=== PATIENT | male | born 1945 | race Caucasian/White ===

== ENCOUNTER 2024-03-05 18:02 | Observation (INO) | payer MEDICARE ==
--- NOTE | 2024-03-05 18:27 | ED ---
General Adult HPI - General Chief complaint: Altered Mental Status Stated complaint: AMS Time Seen by Provider: 03/05/24 18:05 Source: patient, family, EMS, RN notes reviewed Mode of arrival: EMS Limitations: no limitations - History of Present Illness Initial comments: Patient is a 78-year-old male presenting to the emergency department with concern for unresponsive episode. Episode happened a few hours ago. provides majority of history. Episode lasted approximately 2 minutes. Patient was unresponsive and did have a little bit of shaking. Patient has been somewhat confused since that time. Patient does have history of some confusion however this seems worse. Patient also has difficulty with walking and they were in the process of starting with hospice. - Related Data Home Medications Medication Instructions Recorded Confirmed Atorvastatin [Lipitor] 20 mg PO DAILY 03/05/24 03/05/24 Sertraline [Zoloft] 100 mg PO DAILY 03/05/24 03/05/24 Allergies Allergy/AdvReac Type Severity Reaction Status Date / Time No Known Allergies Allergy Verified 03/05/24 18:38 Review of Systems ROS Statement: Those systems with pertinent positive or pertinent negative responses have been documented in the HPI. ROS Other: All systems not noted in ROS Statement are negative. Constitutional: Denies: fever Eyes: Denies: eye pain Respiratory: Denies: dyspnea Cardiovascular: Denies: chest pain Neurological: Reports: as per HPI. Denies: headache, weakness Past Medical History Past Medical History: Memory Impairment History of Any Multi-Drug Resistant Organisms: None Reported Past Surgical History: No Surgical Hx Reported Past Psychological History: Depression Smoking Status: Never smoker Past Alcohol Use History: None Reported Past Drug Use History: None Reported General Exam Limitations: no limitations General appearance: alert, in no apparent distress Head exam: Present: atraumatic, normocephalic Eye exam: Present: normal appearance, PERRL, EOMI ENT exam: Present: normal oropharynx Neck exam: Present: normal inspection. Absent: tenderness, meningismus Respiratory exam: Present: normal lung sounds bilaterally Cardiovascular Exam: Present: regular rate, normal rhythm GI/Abdominal exam: Present: soft. Absent: tenderness Extremities exam: Present: normal inspection, full ROM. Absent: tenderness Neurological exam: Present: alert, CN II-XII intact. Absent: motor sensory deficit Expanded Neurological exam: Present: protecting the airway Patient oriented to: Present: person, place. Absent: time Speech: Present: fluid speech Cranial nerves: EOM's Intact: Normal Motor strength exam: RUE: 5, LUE: 5, RLE: 5, LLE: 5 Eye Response: (4) open spontaneously Motor Response: (6) obeys commands Verbal Response: (4) confused conversation Psychiatric exam: Present: normal affect, normal mood Skin exam: Present: normal color Course Vital Signs 03/05/24 03/05/24 18:05 19:22 Temperature 98.2 F Pulse Rate 93 Respiratory 18 Rate Blood Pressure 172/108 175/115 O2 Sat by Pulse 95 Oximetry EKG Findings - EKG Results: EKG: interpreted by ERMD, sinus rhythm, normal axis, normal QRS, normal ST/T Medical Decision Making - Medical Decision Making Was pt. sent in by a medical professional or institution (, PA, BRICK PAVING CHECKER, urgent care, hospital, or assisted...) When possible be specific @ -No Did you speak to anyone other than the patient for history (EMS, parent, family, police, friend...)? What history was obtained from this source @ -Family is present helps provide history as patient is a poor historian Did you review nursing and triage notes (agree or disagree)? Why? @ -I reviewed and agree with nursing and triage notes Were old charts reviewed (outside hosp., previous admission, EMS record, old EKG, old radiological studies, urgent care reports/EKG's, assisted records)? Report findings @ -No old charts were reviewed Differential Diagnosis (chest pain, altered mental status, abdominal pain women, abdominal pain men, vaginal bleeding, weakness, fever, dyspnea, syncope, headache, dizziness, GI bleed, back pain, seizure, CVA, palpatations, mental health, musculoskeletal)? @ -Differential Altered Mental Status: Hypoglycemia, DKA, hypercapnia, ETOH, overdose, CO poisoning, trauma, myxedema coma, HTN encephalopathy, infection, encephalitis, psychosis, intercranial hemorrhage, hepatic encephalopathy, meningitis, CVA, this is not meant to be an all-inclusive list EKG interpreted by me (3pts min.). @ -As above X-rays interpreted by me (1pt min.). @ -X-ray shows no acute process CT interpreted by me (1pt min.). @ -Brain without acute U/S interpreted by me (1pt. min.). @ -None done What testing was considered but not performed or refused? (CT, X-rays, U/S, labs)? Why? @ -None What meds were considered but not given or refused? Why? @ -None Did you discuss the management of the patient with other professionals (professionals i.e. , PA, BRICK PAVING CHECKER, lab, RT, psych nurse, protective services social worker, brand inspector, teacher, bank secrecy act officer, manager of case)? Give summary @ -Case discussed with practitioner Ioana Regalado who will admit covering hospital call Was smoking cessation discussed for >3mins.? @ -No Was critical care preformed (if so, how long)? @ -No Were there social determinants of health that impacted care today? How? (Homelessness, low income, unemployed, alcoholism, drug addiction, transportation, low edu. Level, literacy, decrease access to med. care, fpc, rehab)? @ -No Was there de-escalation of care discussed even if they declined (Discuss DNR or withdrawal of care, Hospice)? DNR status @ -No What co-morbidities impacted this encounter? (DM, HTN, Smoking, COPD, CAD, Cancer, CVA, ARF, Chemo, Hep., AIDS, mental health diagnosis, sleep apnea, morbid obesity)? @ -None Was patient admitted / discharged? Hospital course, mention meds given and route, prescriptions, significant lab abnormalities, going to OR and other pertinent info. @ -Patient reevaluated. Patient updated. Family also updated on plan. Patient will be admitted with further evaluation, admission orders written Undiagnosed new problem with uncertain prognosis? @ -No Drug Therapy requiring intensive monitoring for toxicity (Heparin, Nitro, Insulin, Cardizem)? @ -No Were any procedures done? @ -No Diagnosis/symptom? @ -Unresponsive episode Acute, or Chronic, or Acute on Chronic? @ -Acute Uncomplicated (without systemic symptoms) or Complicated (systemic symptoms)? @ -Default Side effects of treatment? @ -No Exacerbation, Progression, or Severe Exacerbation? @ -No Poses a threat to life or bodily function? How? (Chest pain, [place], [place], pneumonia, PE, COPD, DKA, ARF, appy, cholecystitis, CVA, Diverticulitis, Homicidal, Suicidal, threat to staff... and all critical care pts) @ -No - Lab Data Result diagrams: 03/05/24 18:37 03/05/24 18:37 Lab Results 03/05/24 03/05/24 03/05/24 Range/Units 18:37 18:37 18:37 WBC 11.4 H (3.8-10.6) k/uL RBC 4.82 (4.30-5.90) m/uL Hgb 13.6 (13.0-17.5) gm/dL Hct 43.5 (39.0-53.0) % MCV 90.3 (80.0-100.0) fL MCH 28.3 (25.0-35.0) pg MCHC 31.3 (31.0-37.0) g/dL RDW 13.3 (11.5-15.5) % Plt Count 272 (150-450) k/uL MPV 7.3 Neutrophils % 81 % Lymphocytes % 11 % Monocytes % 6 % Eosinophils % 1 % Basophils % 0 % Neutrophils # 9.2 H (1.3-7.7) k/uL Lymphocytes # 1.3 (1.0-4.8) k/uL Monocytes # 0.7 (0-1.0) k/uL Eosinophils # 0.2 (0-0.7) k/uL Basophils # 0.0 (0-0.2) k/uL Sodium 139 (137-145) mmol/L Potassium 4.4 (3.5-5.1) mmol/L Chloride 102 (98-107) mmol/L Carbon Dioxide 26 (22-30) mmol/L Anion Gap 11 mmol/L BUN 17 (9-20) mg/dL Creatinine 1.17 (0.66-1.25) mg/dL Est GFR (CKD-EPI)AfAm 68 (>60 ml/min/1.73 sqM) Est GFR (CKD-EPI)NonAf 59 (>60 ml/min/1.73 sqM) Glucose 144 H (74-99) mg/dL Calcium 9.9 (8.4-10.2) mg/dL Magnesium 1.6 (1.6-2.3) mg/dL Total Bilirubin 0.7 (0.2-1.3) mg/dL AST 27 (17-59) U/L ALT 18 (4-49) U/L Alkaline Phosphatase 116 (38-126) U/L Troponin I 0.014 (0.000-0.034) ng/mL Total Protein 6.6 (6.3-8.2) g/dL Albumin 4.0 (3.5-5.0) g/dL Disposition Clinical Impression: Unresponsive episode Disposition: ADMITTED IP TO THIS HOSP Is patient prescribed a controlled substance at d/c from ED?: No Referrals: Nonstaff,Physician [REFERRING] - 1-2 days Time of Disposition: 19:27
[2024-03-05 18:46] LABS: Basophils % (A) 0 %; Eosinophils # (A) 0.2 k/uL (0-0.7); Eosinophils % (A) 1 %; HCT 43.5 % (39.0-53.0); HGB 13.6 gm/dL (13.0-17.5); Lymphocytes # (A) 1.3 k/uL (1.0-4.8); Lymphocytes % (A) 11 %; MCH 28.3 pg (25.0-35.0); MCHC 31.3 g/dL (31.0-37.0); MCV 90.3 fL (80.0-100.0); Mean Platelet Volume 7.3; Monocytes # (A) 0.7 k/uL (0-1.0); Monocytes % (A) 6 %; Neutrophils # (A) 9.2 k/uL (1.3-7.7); Neutrophils % (A) 81 %; Platelet Count 272 k/uL (150-450); RBC 4.82 m/uL (4.30-5.90); RDW 13.3 % (11.5-15.5); WBC 11.4 k/uL (3.8-10.6)
[2024-03-05 19:04] LABS: ALT 18 U/L (4-49); AST 27 U/L (17-59); African American GFR (CKD) 68 (>60 ml/min/1.73 sqM); Alkaline Phosphatase 116 U/L (38-126); Anion Gap 11 mmol/L; Blood Urea Nitrogen 17 mg/dL (9-20); Calcium 9.9 mg/dL (8.4-10.2); Carbon Dioxide 26 mmol/L (22-30); Chloride 102 mmol/L (98-107); Glucose 144 mg/dL (74-99); Magnesium 1.6 mg/dL (1.6-2.3); Non-African American GFR(CKD) 59 (>60 ml/min/1.73 sqM); Potassium 4.4 mmol/L (3.5-5.1); Sodium 139 mmol/L (137-145); Total Bilirubin 0.7 mg/dL (0.2-1.3); Total Protein 6.6 g/dL (6.3-8.2)
--- NOTE | 2024-03-05 19:12 | XR ---
EXAMINATION TYPE: XR chest 2V DATE OF EXAM: 03/05/2024 COMPARISON: None INDICATION: Unresponsive TECHNIQUE: Frontal and lateral views of the chest are obtained. FINDINGS: The heart size is normal. The pulmonary vasculature is normal. The lungs are clear. IMPRESSION: 1. No acute pulmonary process.
--- NOTE | 2024-03-05 19:18 | CT ---
EXAMINATION TYPE: CT brain wo con DATE OF EXAM: 03/05/2024 COMPARISON: None INDICATION: SEIZURE/CONFUSION DLP: 1080 mGycm, Automated exposure control for dose reduction was used. CONTRAST: None CT of the brain is performed utilizing 3 mm thick sections through the posterior fossa and 3 mm thick sections through the remaining calvarium. Study is performed within 24 hours of arrival to the hosp ital. No abnormal hyperdensity is present to suggest an acute intracranial hemorrhage. No mass lesion is evident. No acute infarcts are evident. Periventricular white matter hypodensity is present, likely on the bas is of chronic white matter ischemic changes. Ventricles and sulci are prominent for the patient age. Paranasal sinuses and mastoid air cells within the [id number] are clear. IMPRESSION: 1. No acute intracranial process. Follow up MRI can be performed as clinically indicated. 2. Atrophy with chronic appearing periventricular white matter ischemic type changes.
[2024-03-05] MEDS ORDERED: NALOXONE 0.4 MG/ML 1 ML VIAL IV PRN (19:27)
[2024-03-05] MEDS: hydrALAZINE HCL 25 MG TAB PO STA (19:36)
[2024-03-05] MEDS: FAMOTIDINE 20 MG TAB PO SCH (20:27)
[2024-03-06] MEDS: hydrALAZINE HCL 25 MG TAB PO PRN (07:41)
[2024-03-06] MEDS: ATORVASTATIN 20 MG TAB PO SCH (08:17)
[2024-03-06] MEDS: SERTRALINE 100 MG TAB PO SCH (08:17)
--- NOTE | 2024-03-06 09:54 | P.CRDCN ---
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 He has a past medical history of depression and hyperlipidemia and dementia. Patient apparently had an unresponsive episode that lasted about 2 minutes with some shaking and he was more confused than his baseline following that. Family apparently was looking into signing him up for hospice prior to this. Patient is very confused as a matter fact, he looks over his shoulder to ask his a question who was not there. Patient apparently is unable to ambulate. Blood pressure initially 172/108 and now is 174/96. Patient received 1 dose of hydralazine 25 mg EKG: Sinus rhythm Chest x-ray: No acute process CAT scan of the brain showed no acute process Laboratory studies: WBC 11.4, hemoglobin 13.6. Sodium 139, potassium 4.4, creatinine 1.17, blood sugar 144. Troponins negative x 3. Home cardiac medications: Review Of Systems: At the time of my exam: Unable to obtain accurate ROS due to confusion CONSTITUTIONAL: Denies fever or chills. HEENT: Denies blurred vision, vision changes, or eye pain. Denies hemoptysis CARDIOVASCULAR: Denies chest pain. Denies orthopnea. Denies PND. Denies palpitations RESPIRATORY: Denies shortness of breath. GASTROINTESTINAL: Denies abdominal pain. Denies nausea or vomiting. HEMATOLOGIC: Denies bleeding disorders. GENITOURINARY: Denies any blood in urine. SKIN: Denies puritis. Denies rash. Physical examination: Gen: This is a 78-year-old male appears to be in no acute distress VS: reviewed HEENT: Head is atraumatic, normocephalic. Pupils equal, round. Sclerae is anicteric. NECK: Supple. No JVD. LUNGS: Clear to auscultation. No wheezes or rhonchi. No intercostal retractions. HEART: Regular rate and rhythm. ABDOMEN: Soft No tenderness. EXTREMITIES: No pedal edema. No calf tenderness. NEUROLOGICAL: Patient is awake, alert and confused. Assessment: Unresponsive episode, rule out cardiac etiology Uncontrolled hypertension Dementia Hyperlipidemia Depression Plan: Resume patient's home cardiac medications Start patient on losartan 25 mg daily Monitor blood pressure Continue telemetry Obtain 2-D echocardiogram and Doppler study to assess cardiac structure and function Further recommendations to follow based upon clinical course Thank you kindly for this consultation. Nurse practitioner note has been reviewed, I agree with documented findings and plan of care. Patient was seen and examined. Past Medical History Past Medical History: Memory Impairment History of Any Multi-Drug Resistant Organisms: None Reported Past Surgical History: No Surgical Hx Reported Past Psychological History: Depression Smoking Status: Never smoker Past Alcohol Use History: None Reported Past Drug Use History: None Reported Medications and Allergies Home Medications Medication Instructions Recorded Confirmed Type Atorvastatin [Lipitor] 20 mg PO DAILY 03/05/24 03/05/24 History Sertraline [Zoloft] 100 mg PO DAILY 03/05/24 03/05/24 History Allergies Allergy/AdvReac Type Severity Reaction Status Date / Time No Known Allergies Allergy Verified 03/05/24 18:38 Physical Exam Vitals: Vital Signs Temp Pulse Resp BP Pulse Ox 03/06/24 08:20 88 18 174/96 03/06/24 07:25 98.3 F 81 16 157/104 95 03/06/24 03:22 85 18 171/99 95 03/05/24 22:39 95 18 164/99 95 03/05/24 19:22 175/115 03/05/24 18:05 98.2 F 93 18 172/108 95 Intake and Output 03/05/24 03/06/24 03/06/24 22:59 06:59 14:59 Other: Weight 70.307 kg Results 03/05/24 18:37 03/05/24 18:37 Cardiac Enzymes 03/05/24 03/05/24 03/05/24 Range/Units 18:37 18:37 21:34 AST 27 (17-59) U/L Troponin I 0.014 0.012 (0.000-0.034) ng/mL 03/06/24 Range/Units 00:17 AST (17-59) U/L Troponin I 0.015 (0.000-0.034) ng/mL CBC 03/05/24 Range/Units 18:37 WBC 11.4 H (3.8-10.6) k/uL RBC 4.82 (4.30-5.90) m/uL Hgb 13.6 (13.0-17.5) gm/dL Hct 43.5 (39.0-53.0) % Plt Count 272 (150-450) k/uL Comprehensive Metabolic Panel 03/05/24 Range/Units 18:37 Sodium 139 (137-145) mmol/L Potassium 4.4 (3.5-5.1) mmol/L Chloride 102 (98-107) mmol/L Carbon Dioxide 26 (22-30) mmol/L BUN 17 (9-20) mg/dL Creatinine 1.17 (0.66-1.25) mg/dL Glucose 144 H (74-99) mg/dL Calcium 9.9 (8.4-10.2) mg/dL AST 27 (17-59) U/L ALT 18 (4-49) U/L Alkaline Phosphatase 116 (38-126) U/L Total Protein 6.6 (6.3-8.2) g/dL Albumin 4.0 (3.5-5.0) g/dL Current Medications Generic Name Dose Route Start Last Admin Trade Name Freq PRN Reason Stop Dose Admin Atorvastatin Calcium 20 mg 03/06/24 09:00 03/06/24 08:17 Atorvastatin 20 Mg Tab PO 20 mg DAILY LUIS Administration Famotidine 20 mg 03/05/24 21:00 03/06/24 08:17 Famotidine 20 Mg Tab PO 20 mg BID LUIS Administration Hydralazine HCl 25 mg 03/05/24 19:30 03/06/24 07:41 Hydralazine Hcl 25 Mg Tab PO 25 mg BID PRN Administration Blood Pressure - High Naloxone HCl 0.2 mg 03/05/24 19:27 Naloxone 0.4 Mg/Ml 1 Ml Vial IV Q2M PRN Opioid Reversal Sertraline HCl 100 mg 03/06/24 09:00 03/06/24 08:17 Sertraline 100 Mg Tab PO 100 mg DAILY LUIS Administration Intake and Output 03/05/24 03/06/24 03/06/24 22:59 06:59 14:59 Other: Weight 70.307 kg 03/05/24 18:37 03/05/24 18:37
[2024-03-06] MEDS: LOSARTAN 25 MG TAB PO SCH (11:12)
[2024-03-06 12:57] LABS: Basophils % (A) 0 %; Eosinophils # (A) 0.3 k/uL (0-0.7); Eosinophils % (A) 3 %; HCT 44.1 % (39.0-53.0); HGB 14.5 gm/dL (13.0-17.5); Lymphocytes # (A) 1.6 k/uL (1.0-4.8); Lymphocytes % (A) 15 %; MCH 29.4 pg (25.0-35.0); MCHC 32.9 g/dL (31.0-37.0); MCV 89.3 fL (80.0-100.0); Mean Platelet Volume 7.8; Monocytes # (A) 0.7 k/uL (0-1.0); Monocytes % (A) 7 %; Neutrophils # (A) 7.6 k/uL (1.3-7.7); Neutrophils % (A) 74 %; Platelet Count 258 k/uL (150-450); RBC 4.94 m/uL (4.30-5.90); RDW 13.7 % (11.5-15.5); WBC 10.3 k/uL (3.8-10.6)
[2024-03-06 13:14] LABS: ALT 16 U/L (4-49); AST 23 U/L (17-59); African American GFR (CKD) 71 (>60 ml/min/1.73 sqM); Albumin 3.9 g/dL (3.5-5.0); Alkaline Phosphatase 101 U/L (38-126); Anion Gap 6 mmol/L; Blood Urea Nitrogen 17 mg/dL (9-20); Calcium 9.8 mg/dL (8.4-10.2); Carbon Dioxide 30 mmol/L (22-30); Chloride 104 mmol/L (98-107); Glucose 125 mg/dL (74-99); Non-African American GFR(CKD) 62 (>60 ml/min/1.73 sqM); Sodium 140 mmol/L (137-145); Total Bilirubin 0.6 mg/dL (0.2-1.3); Total Protein 6.5 g/dL (6.3-8.2)
--- NOTE | 2024-03-06 15:44 | P.HPIM ---
History of Present Illness This is a pleasant 78 years old male with past medical history of multiple medical problems Patient brought to the hospital because he was found unresponsive at the floor. Patient can of poor historian and he cannot remember what happened. He is disoriented to place as he thinks this is his house, with difficulty he can tell the year but not the month or date. He needed to be reminded for the name of the president. Patient follows command but he has poor insight into his illness He denies any chest pain or dyspnea He denies any GI/ symptoms He has mild headache but no dizziness. He denies weakness or numbness He said he quit smoking alcohol about 30 years ago Blood pressure was elevated 170/96, heart rate 88. He is afebrile Labs were unremarkable except for mildly elevated WBC at 11.4, has unremarkable CBC, BMP, liver enzymes and INR Troponin x 2 are -0.[address] of the brain negative Chest x-ray is negative for acute process EKG sinus rhythm at 91 with sinus arrhythmia, no significant ST-T changes Review of Systems Review of systems CONSTITUTIONAL: No fever, no malaise, no fatigue. HEENT: No recent visual problems or hearing problems. Denied any sore throat. CARDIOVASCULAR: No orthopnea, PND, no palpitations, no syncope. PULMONARY: No shortness of breath, no cough, no hemoptysis. GASTROINTESTINAL: No diarrhea, no nausea, no vomiting, no abdominal pain. Nor moactive bowel sounds. NEUROLOGICAL: No headaches, no weakness, no numbness. HEMATOLOGICAL: Denies any bleeding or petechiae. GENITOURINARY: Denies any burning micturition, frequency, or urgency. MUSCULOSKELETAL/RHEUMATOLOGICAL: Denies any joint pain, swelling, or any muscle pain. ENDOCRINE: Denies any polyuria or polydipsia. Past Medical History Past Medical History: Memory Impairment History of Any Multi-Drug Resistant Organisms: None Reported Past Surgical History: No Surgical Hx Reported Past Psychological History: Depression Smoking Status: Never smoker Past Alcohol Use History: None Reported Past Drug Use History: None Reported Medications and Allergies Home Medications Medication Instructions Recorded Confirmed Type Atorvastatin [Lipitor] 20 mg PO DAILY 03/05/24 03/05/24 History Sertraline [Zoloft] 100 mg PO DAILY 03/05/24 03/05/24 History Allergies Allergy/AdvReac Type Severity Reaction Status Date / Time No Known Allergies Allergy Verified 03/05/24 18:38 Physical Exam Vitals: Vital Signs Temp Pulse Resp BP Pulse Ox 03/06/24 08:20 88 18 174/96 03/06/24 07:25 98.3 F 81 16 157/104 95 03/06/24 03:22 85 18 171/99 95 03/05/24 22:39 95 18 164/99 95 03/05/24 19:22 175/115 03/05/24 18:05 98.2 F 93 18 172/108 95 Intake and Output 03/05/24 03/06/24 03/06/24 22:59 06:59 14:59 Other: Weight 70.307 kg -GENERAL: The patient is alert and oriented x1-2 , not in any acute distress. Well developed, well nourished. HEENT: Pupils are round and equally reacting to light. EOMI. No scleral icterus. No conjunctival pallor. Normocephalic, atraumatic. No pharyngeal erythema. No thyromegaly. CARDIOVASCULAR: S1 and S2 present. No murmurs, rubs, or gallops. PULMONARY: Chest is clear to auscultation, no wheezing , no crackles. ABDOMEN: Soft, nontender, nondistended, normoactive bowel sounds. No palpable organomegaly. MUSCULOSKELETAL: No joint swelling or deformity. EXTREMITIES: No cyanosis, clubbing, or pedal edema. NEUROLOGICAL: Gross neurological examination did not reveal any focal deficits. SKIN: No rashes. no petechiae. Results CBC & Chem 7: 03/06/24 12:36 03/06/24 12:36 Labs: Abnormal Lab Results - Last 24 Hours (Table) 03/05/24 03/05/24 Range/Units 18:37 18:37 WBC 11.4 H (3.8-10.6) k/uL Neutrophils # 9.2 H (1.3-7.7) k/uL Glucose 144 H (74-99) mg/dL Assessment and Plan Assessment: Fall at home, rule out syncope Hypertension with urgency Metabolic/toxic encephalopathy History of depression Mild leukocytosis Plan: Patient evaluated by neurologist who recommended EEG which is pending Follow-up echocardiogram Cardiology consult and neurology consult Resume home medication Check urine analysis and bladder scan Labs and medication were reviewed.. Continue same treatment. Continue with symptomatic treatment. Resume home medication. Monitor labs and vitals. DVT and GI prophylaxis. Further recommendations as per clinical course of the patient DVT prophylaxis: Subcutaneous heparin GI Prophylaxis: Pepcid PT/OT: Pending Prognosis is guarded
--- NOTE | 2024-03-06 16:12 | P.CNNES ---
History of Present Illness Consult date: 03/06/24 Requesting physician: Fran Fernández Reason for Consult: Unresponsive episode History of Present Illness: This is a 78-year-old gentleman history of memory impairment who present emergency department because of episode of unresponsiveness. Patient is a poor historian and it seems that yesterday he had episode of unresponsiveness and the provided the history to the ED physician. It seems that the episode lasted for 2 minutes. He had a little bit of shaking and he has been somewhat confused since that time. He has been having difficulty walking and they are in the process of starting hospice. Some of the workup during this hospital visit consisted of: TSH is 1.060 Serum glucose is 144 on presentation, calcium, magnesium, AST ALT, sodium BUN/creatinine are within normal limits next CT of the head is reported as no acute intracranial process. Atrophy with chronic appearing periventricular white matter ischemic type changes. Personally reviewed the CT and I agree there is no acute or subacute ischemia. I feel the patient's ventricles the lateral ventricle third and fourth ventricle appears slightly more dilated than the patient generalized atrophy concerning for normal pressure hydrocephalus Review of Systems Limited. Past Medical History Past Medical History: Memory Impairment History of Any Multi-Drug Resistant Organisms: None Reported Past Surgical History: No Surgical Hx Reported Past Psychological History: Depression Smoking Status: Never smoker Past Alcohol Use History: None Reported Past Drug Use History: None Reported Medications and Allergies Home Medications Medication Instructions Recorded Confirmed Type Atorvastatin [Lipitor] 20 mg PO DAILY 03/05/24 03/05/24 History Sertraline [Zoloft] 100 mg PO DAILY 03/05/24 03/05/24 History Allergies Allergy/AdvReac Type Severity Reaction Status Date / Time No Known Allergies Allergy Verified 03/05/24 18:38 Physical Examination - Vital Signs Vital Signs: Vital Signs Temp Pulse Resp BP Pulse Ox 03/06/24 14:42 79 16 153/96 95 03/06/24 12:00 84 16 169/111 03/06/24 11:15 85 18 170/108 03/06/24 10:54 76 18 175/101 03/06/24 08:20 88 18 174/96 03/06/24 07:25 98.3 F 81 16 157/104 95 03/06/24 03:22 85 18 171/99 95 03/05/24 22:39 95 18 164/99 95 03/05/24 19:22 175/115 03/05/24 18:05 98.2 F 93 18 172/108 95 General: Lying in bed and is not in acute distress. HENT: Supple neck. Neuro: Somewhat limited because of patient's very severe hearing as well as cooperation The patient is awake alert oriented to self and he stated he is in the hospital. He stated the year is 1923. He is able to name few objects correctly such as watch. No aphasia from limited language Pupils are round equal reactive to light the pupils are round 2 to 3 mm bilaterally. Visual wilkins are full to confrontation. Extraocular movements intact no nystagmus. No facial weakness. No dysarthria. Patient has severe hearing loss bilaterally. Motor is unable to assess individual muscle strength because of his cooperation but he is able to lift up all extremities above gravity. Reflexes sensation is unable to assess because of his cooperation Even plantars is unable to assess because of his cooperation Results - Laboratory Findings CBC and BMP: 03/06/24 12:36 03/06/24 12:36 Abnormal Lab Findings: Abnormal Labs 03/05/24 03/05/24 03/06/24 18:37 18:37 12:36 WBC 11.4 H Neutrophils # 9.2 H Glucose 144 H 125 H Assessment and Plan Assessment: This is a 78-year-old gentleman who presented emergency department because of episode of unresponsiveness. notified the ED physician that he had episode of unresponsiveness with little bit of shaken and he has been some come somewhat confused since then. The episode of unresponsive was 2 minutes. stated that they are in the process of starting hospice. Episode of unresponsiveness with shaking and and was confused afterwards seems suspicious of possible seizure. CT of the head is negative for any acute or subacute process there is a concern for normal pressure hydrocephalus. Underlying history of memory impairment Plan: Ordered a routine EEG. I will Assess the EEG first and will see other work-up prior to starting patient on any antiseizure medication as well as will see whether he has any further episodes of unresponsiveness that is truly seizure. Recommend MRI of the brain but it does not appear the patient will cooperate for the MRI since he would not lie still for it. Ordered ammonia level, vitamin B12. On seizure precautions seizure pads I feel there is a suspicion for normal pressure hydrocephalus on CT but if the is can a pursue hospice there is no further intervention needed unless the wants to have the patient evaluated by neurosurgeon neurologist as an outpatient for further evaluation. 2D echo was ordered by cardiology team Will defer the rest of the medical management to primary and other specialist next Thank you for the consultation. Time with Patient: Greater than 30
[2024-03-06] MEDS: QUEtiapine 25 MG TAB PO PRN (17:06)
--- NOTE | 2024-03-06 17:20 | CA ---
Transthoracic Echo Report Name: Marshall Brown Age: 78 Gender: M : 1945 Exam Date: 03/06/2024 15:00 Exam Location: [place] [facility] Ht (in): 69 Wt (lb): 155 Ordering Physician: Vianey Pickard Attending/Referring Phys: [id number], Neeraj It Applications Manager Kathleen Mcpherson RDCS Procedure CPT: Indications: LVF Cardiac Hx: Technical Quality: Very technically difficult study Contrast 1: Definity Total Dose (mL): 2 Contrast 2: Total Dose (mL): MEASUREMENTS (Male / Female) Normal Values 2D ECHO LV Diastolic Diameter PLAX 4.3 cm 4.2 - 5.9 / 3.9 - 5.3 cm LV Systolic Diameter PLAX 2.6 cm IVS Diastolic Thickness 1.1 cm 0.6 - 1.0 / 0.6 - 0.9 cm LVPW Diastolic Thickness 1.1 cm 0.6 - 1.0 / 0.6 - 0.9 cm LV Relative Wall Thickness 0.5 RV Internal Dim ED PLAX 2.1 cm LV Diastolic Volume MOD 4C 116.2 cm??? LV Systolic Volume MOD 4C 62.5 cm??? LV Ejection Fraction MOD 4C 46.2 % LV Cardiac Index MOD 4C 2373.8 cm???/min???m??? LV Diastolic Length 4C 8.8 cm LV Systolic Length 4C 7.9 cm DOPPLER AV Peak Velocity 62.0 cm/s AV Peak Gradient 1.5 mmHg MV Area PHT 3.1 cm??? Mitral E Point Velocity 48.0 cm/s Mitral A Point Velocity 88.7 cm/s Mitral E to A Ratio 0.5 MV Deceleration Time 243.0 ms TR Peak Velocity 251.9 cm/s TR Peak Gradient 25.4 mmHg Right Ventricular Systolic Press 30.4 mmHg FINDINGS Left Ventricle Left ventricular ejection fraction is estimated at 55-60 %. Left ventricular cavity size normal. Mildly increased septal wall thickness. No obvious regional wall motion abnormalities. Right Ventricle Normal right ventricular size and function. Right ventricular systolic pressure within normal limits. Right Atrium Right atrium not well visualized. Left Atrium Left atrium not well visualized. Mitral Valve Mitral valve thickened. Mild mitral annular calcification. No mitral stenosis, regurgitation or prolapse. Aortic Valve Aortic valve not well visualized. No aortic valve stenosis or regurgitation. Tricuspid Valve Structurally normal tricuspid valve. Mild tricuspid regurgitation. Pulmonic Valve Pulmonic valve not well visualized. Pericardium No pericardial or pleural effusion. Aorta Aortic root and proximal ascending aorta not well visualized. CONCLUSIONS Normal LV function Previewed by: Dr. Bj Osman MD (Electronically Signed) Final Date: 06 March 2024 17:20
[2024-03-06 20:12] LABS: Appearance,Urine Clear (Clear); Bilirubin,Urine Negative (Negative); Blood,Urine Negative (Negative); Color,Urine Light Yellow; Glucose,Urine (UA) Negative (Negative); Ketones,Urine Negative (Negative); Leukocyte Esterase,Urine Negative (Negative); Nitrite,Urine Negative (Negative); Protein,Urine Trace (Negative); Specific Gravity,Urine 1.019 (1.001-1.035); Urobilinogen,Urine <2.0 mg/dL (<2.0)
--- NOTE | 2024-03-06 22:25 | EEG ---
ELECTROENCEPHALOGRAM REPORT CLINICAL HISTORY: This is a 78-year-old gentleman with episode of unresponsiveness. The video EEG is obtained to evaluate for seizure epileptiform activity. RELEVANT MEDICATION: The patient is not on any anti-seizure medication. EEG TYPE: This is a routine 21-channel EEG with video using the 10/20 electrode placement system. DESCRIPTION: Wakefulness and drowsiness are obtained. During awake state, the posterior-dominant rhythm consists of ilf-ne-bmyleabw voltage of 6-6 to 6.5 hertz activity that is well modulated, well sustained. There is no physiological stage 2 sleep architecture. There is no focal slowing. INTERICTAL AND ICTAL: None. ACTIVATION PROCEDURE: Photic stimulation did not evoke a posterior driving response. There is no abnormality during the photic stimulation. Hyperventilation is not performed. CLINICAL INTERPRETATION: This is an abnormal routine EEG. The background slowing is suggestive of mild encephalopathy. There is no focal slowing, epileptiform discharge, or seizure on the EEG. Clinical correlation is recommended. MMARIADNA / ISABELLAN: [id number] /
[2024-03-07 08:39] LABS: Basophils % (A) 0 %; Eosinophils # (A) 0.1 k/uL (0-0.7); Eosinophils % (A) 1 %; HCT 44.6 % (39.0-53.0); HGB 14.4 gm/dL (13.0-17.5); Lymphocytes # (A) 1.1 k/uL (1.0-4.8); Lymphocytes % (A) 9 %; MCH 28.8 pg (25.0-35.0); MCHC 32.2 g/dL (31.0-37.0); MCV 89.4 fL (80.0-100.0); Mean Platelet Volume 7.2; Monocytes # (A) 0.9 k/uL (0-1.0); Monocytes % (A) 7 %; Neutrophils # (A) 10.4 k/uL (1.3-7.7); Neutrophils % (A) 82 %; Platelet Count 280 k/uL (150-450); RBC 4.99 m/uL (4.30-5.90); RDW 13.3 % (11.5-15.5); WBC 12.7 k/uL (3.8-10.6)
[2024-03-07 09:10] LABS: African American GFR (CKD) 77 (>60 ml/min/1.73 sqM); Anion Gap 8 mmol/L; Blood Urea Nitrogen 15 mg/dL (9-20); Carbon Dioxide 24 mmol/L (22-30); Chloride 105 mmol/L (98-107); Glucose 126 mg/dL (74-99); Non-African American GFR(CKD) 66 (>60 ml/min/1.73 sqM); Potassium 4.3 mmol/L (3.5-5.1); Sodium 137 mmol/L (137-145)
[2024-03-07 12:13] VITALS: BMI 21.4
--- NOTE | 2024-03-07 12:31 | P.PN ---
Subjective This is a pleasant 78 years old male with past medical history of multiple medical problems Patient brought to the hospital because he was found unresponsive at the floor. Patient can of poor historian and he cannot remember what happened. He is d isoriented to place as he thinks this is his house, with difficulty he can tell the year but not the month or date. He needed to be reminded for the name of the president. Patient follows command but he has poor insight into his illness He denies any chest pain or dyspnea He denies any GI/ symptoms He has mild headache but no dizziness. He denies weakness or numbness He said he quit smoking alcohol about 30 years ago Blood pressure was elevated 170/96, heart rate 88. He is afebrile Labs were unremarkable except for mildly elevated WBC at 11.4, has unremarkable CBC, BMP, liver enzymes and INR Troponin x 2 are -0.[address] of the brain negative Chest x-ray is negative for acute process EKG sinus rhythm at 91 with sinus arrhythmia, no significant ST-T changes 03/07 Patient looks confused today, I talked to the she said that he was not that confused more than 2 weeks ago and he was gradually getting worse. There was suspicion of a seizure. Neurologist evaluated the patient, EEG showed no epileptiform discharge Urine analysis is negative, bladder scan showing urine residual 200-300 As per staff was planning on sending him to hospice care. I called the Ms. Baker and discussed the case with her, she told me they want him to go to hospice because she cannot take care of him. She denies history of cance Hemodynamically stable Losartan added for better blood pressure control Echocardiogram done: Ejection fraction 55 to 60% wants to keep him 1 more day in the hospital to get him arrangements if he is going to be discharged tomorrow Active Medications Generic Name Dose Route Start Last Admin Trade Name Freq PRN Reason Stop Dose Admin Atorvastatin Calcium 20 mg 03/06/24 09:00 03/06/24 08:17 Atorvastatin 20 Mg Tab PO 20 mg DAILY LUIS Administration Famotidine 20 mg 03/05/24 21:00 03/06/24 22:29 Famotidine 20 Mg Tab PO 20 mg BID LUIS Administration Hydralazine HCl 25 mg 03/05/24 19:30 03/06/24 22:29 Hydralazine Hcl 25 Mg Tab PO 25 mg BID PRN Administration Blood Pressure - High Losartan Potassium 25 mg 03/06/24 10:00 03/06/24 11:12 Losartan 25 Mg Tab PO 25 mg DAILY LUIS Administration Naloxone HCl 0.2 mg 03/05/24 19:27 Naloxone 0.4 Mg/Ml 1 Ml Vial IV Q2M PRN Opioid Reversal Quetiapine Fumarate 25 mg 03/06/24 16:52 03/06/24 17:06 Quetiapine 25 Mg Tab PO 25 mg DAILY PRN Administration Agitation Sertraline HCl 100 mg 03/06/24 09:00 03/06/24 08:17 Sertraline 100 Mg Tab PO 100 mg DAILY LUIS Administration Objective - Vital Signs Vital signs: Vital Signs Temp 98.3 F 03/07/24 08:30 Pulse 80 03/07/24 08:30 Resp 17 03/07/24 08:30 BP 141/88 03/07/24 08:30 Pulse Ox 96 03/07/24 08:30 FiO2 Intake & Output 03/06/24 03/07/24 03/07/24 18:59 06:59 18:59 Intake Total 540 Balance 540 Weight 66 kg 66 kg Intake: Oral 540 Other: Voiding Method External Catheter External Catheter # Voids 1 - Exam - GENERAL: The patient is awake but confused not in any acute distress. Well developed, well nourished. HEENT: Pupils are round and equally reacting to light. EOMI. No scleral icterus. No conjunctival pallor. Normocephalic, atraumatic. No pharyngeal erythema. No thyromegaly. CARDIOVASCULAR: S1 and S2 present. No murmurs, rubs, or gallops. PULMONARY: Chest is clear to auscultation, no wheezing , no crackles. ABDOMEN: Soft, nontender, nondistended, normoactive bowel sounds. No palpable organomegaly. MUSCULOSKELETAL: No joint swelling or deformity. EXTREMITIES: No cyanosis, clubbing, or pedal edema. NEUROLOGICAL: Gross neurological examination did not reveal any focal deficits. SKIN: No rashes. no petechiae. - Labs CBC & Chem 7: 03/07/24 08:01 03/07/24 08:01 Labs: Abnormal Lab Results - Last 24 Hours (Table) 03/06/24 03/06/24 03/07/24 Range/Units 12:36 18:05 08:01 WBC 12.7 H (3.8-10.6) k/uL Neutrophils # 10.4 H (1.3-7.7) k/uL Glucose 125 H (74-99) mg/dL Urine Protein Trace H (Negative) 03/07/24 Range/Units 08:01 WBC (3.8-10.6) k/uL Neutrophils # (1.3-7.7) k/uL Glucose 126 H (74-99) mg/dL Urine Protein (Negative) Assessment and Plan Assessment: Fall at home, rule out syncope Hypertension with urgency Metabolic/toxic encephalopathy History of depression Mild leukocytosis Plan: Patient evaluated by neurologist who recommended EEG which is unremarkable Echocardiogram add losartan 25 mg with close monitoring blood pressure Cardiology consult and neurology consult Resume home medication Labs and medication were reviewed.. Continue same treatment. Continue with symptomatic treatment. Resume home medication. Monitor labs and vitals. DVT and GI prophylaxis. Further recommendations as per clinical course of the patient DVT prophylaxis: Subcutaneous heparin GI Prophylaxis: Pepcid PT/OT: Pending Prognosis is guarded
--- NOTE | 2024-03-07 15:05 | P.PN ---
Subjective Progress Note Date: 03/07/24 I am following up with the patient and according to the nurse he is more cooperative today but continues to be confused. I spoke with the patient's via phone and she was in tears and stated that she is unable to take care of him especially that she is the same age as him and she feels his condition is deteriorating. She is thinking about hospice but wants to talk to her daughter/rest of the family first. Objective - Vital Signs Vital signs: Vital Signs Temp 98.3 F 03/07/24 08:30 Pulse 80 03/07/24 08:30 Resp 17 03/07/24 08:30 BP 141/88 03/07/24 08:30 Pulse Ox 96 03/07/24 08:30 FiO2 Intake & Output 03/06/24 03/07/24 03/07/24 18:59 06:59 18:59 Intake Total 540 200 Balance 540 200 Weight 66 kg 66 kg Intake: Oral 540 200 Other: Voiding Method External Catheter External Catheter # Voids 1 - Exam General: Lying in bed and does not appear in acute distress. Neuro: Patient is awake alert oriented to self and he correctly stated that he is in the hospital. He is able to identify some objects correctly such as pen but sometimes he needed some cueing. He says he still appears to be confused and at times. Unable to assess visual wilkins or extraocular movement because of his cooperation. No facial weakness. No dysarthria Motor: Strength is unable to assess individual muscle strength but he is able to lift up upper extremity above gravity I do not appreciate any focality in the uppers. In the lowers he is wiggling his toes. Some of the workup during this hospital visit consisted of: TSH is 1.060 Vitamin B12 is 447 Ammonia is less than 9 Serum glucose is 144 on presentation, calcium, magnesium, AST ALT, sodium BUN/creatinine are within normal limits next CT of the head is reported as no acute intracranial process. Atrophy with chronic appearing periventricular white matter ischemic type changes. Margarita lawson reviewed the CT and I agree there is no acute or subacute ischemia. I feel the patient's ventricles the lateral ventricle third and fourth ventricle appears slightly more dilated than the patient generalized atrophy concerning for normal pressure hydrocephalus Routine EEG is abnormal. The background slowing is suggestive of mild encephalopathy. There is no focal slowing, [employer]iForm discharge or seizure on the EEG 2D echo is reported as normal left ventricular function. - Labs CBC & Chem 7: 03/07/24 08:01 03/07/24 08:01 Labs: Abnormal Lab Results - Last 24 Hours (Table) 03/06/24 03/07/24 03/07/24 Range/Units 18:05 08:01 08:01 WBC 12.7 H (3.8-10.6) k/uL Neutrophils # 10.4 H (1.3-7.7) k/uL Glucose 126 H (74-99) mg/dL Urine Protein Trace H (Negative) Assessment and Plan Assessment: This is a 78-year-old gentleman who presented emergency department because of episode of unresponsiveness. notified the ED physician that he had episode of unresponsiveness with little bit of shaken and he has been some come somewhat confused since then. The episode of unresponsive was 2 minutes. stated that they are in the process of starting hospice. Episode of unresponsiveness with shaking and and was confused afterwards seems suspicious of possible seizure. CT of the head is negative for any acute or subacute process there is a concern for normal pressure hydrocephalus. Underlying history of memory impairment. Feel the patient likely has underlying at least moderate dementia. Plan: Routine EEG was negative for any seizure or discharges. Because of my concern for seizure I started the patient on Depakote 250 mg twice daily. I will avoid Keppra since it can cause behavioral/mood issues. I feel there is a suspicion for normal pressure hydrocephalus on CT but if the is can a pursue hospice there is no further intervention needed unless the wants to have the patient evaluated by neurosurgeon neurologist as an outpatient for further evaluation. I spoke with the patient's via phone and she is concerning of hospice but wants to speak with her daughter and the rest of the family first. feels she is unable to take care of the patient especially since he is having deteri oration of his condition as well as the patient's is a same age as him and has difficulty taking care of him. I will Hold off on the MRI of the brain until the family decides. As well as unlikely the patient will cooperate for an MRI at this time. On seizure precautions seizure pads Cardiology is on board. Will defer the rest of the medical management to primary and other specialist next The plan is discussed with patient's via phone and his nurse. Time with Patient: Less than 30
--- NOTE | 2024-03-07 18:20 | P.PN ---
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 He has a past medical history of depression and hyperlipidemia and dementia. Patient apparently had an unresponsive episode t hat lasted about 2 minutes with some shaking and he was more confused than his baseline following that. Family apparently was looking into signing him up for hospice prior to this. Patient is very confused as a matter fact, he looks over his shoulder to ask his a question who was not there. Patient apparently is unable to ambulate. Blood pressure initially 172/108 and now is 174/96. Patient received 1 dose of hydralazine 25 mg EKG: Sinus rhythm Chest x-ray: No acute process CAT scan of the brain showed no acute process Laboratory studies: WBC 11.4, hemoglobin 13.6. Sodium 139, potassium 4.4, creatinine 1.17, blood sugar 144. Troponins negative x 3. Home cardiac medications: 03/07 Patient is seen today in follow-up on the cardiac stepdown unit. Patient continues to have significant confusion. Yesterday, losartan was started and blood pressure readings remain elevated but improved. Blood pressure 141/88, heart rate 80, pulse ox 96% on room air. Echocardiogram reveals normal LV function. Telemetry has been a sinus rhythm no arrhythmias. Physical examination: Gen: This is a 78-year-old male appears to be in no acute distress VS: reviewed HEENT: Head is atraumatic, normocephalic. Pupils equal, round. Sclerae is anicteric. NECK: Supple. No JVD. LUNGS: Clear to auscultation. No wheezes or rhonchi. No intercostal retractions. HEART: Regular rate and rhythm. ABDOMEN: Soft No tenderness. EXTREMITIES: No pedal edema. No calf tenderness. NEUROLOGICAL: Patient is awake, alert and confused. Assessment: Unresponsive episode, rule out cardiac etiology Uncontrolled hypertension Dementia Hyperlipidemia Depression Plan: Continue patient's home cardiac medications Increase losartan to 50 mg daily Cardiology will sign off this case and follow on an as-needed basis. Please reconsult for any new concerns. Patient may follow-up in the office in one to 2 weeks. Nurse practitioner note has been reviewed, I agree with documented findings and plan of care. Patient was seen and examined. Objective - Vital Signs Vital signs: Vital Signs Temp 98.3 F 09/12/24 08:30 Pulse 80 03/07/24 08:30 Resp 17 03/07/24 08:30 BP 141/88 03/07/24 08:30 Pulse Ox 96 03/07/24 08:30 FiO2 Intake & Output 03/06/24 03/07/24 03/07/24 18:59 06:59 18:59 Intake Total 540 Balance 540 Weight 66 kg 66 kg Intake: Oral 540 Other: Voiding Method External Catheter External Catheter # Voids 1 - Labs CBC & Chem 7: 03/07/24 08:01 03/07/24 08:01 Labs: Abnormal Lab Results - Last 24 Hours (Table) 03/06/24 03/06/24 03/07/24 Range/Units 12:36 18:05 08:01 WBC 12.7 H (3.8-10.6) k/uL Neutrophils # 10.4 H (1.3-7.7) k/uL Glucose 125 H (74-99) mg/dL Urine Protein Trace H (Negative) 03/07/24 Range/Units 08:01 WBC (3.8-10.6) k/uL Neutrophils # (1.3-7.7) k/uL Glucose 126 H (74-99) mg/dL Urine Protein (Negative)
[2024-03-07] MEDS: LOSARTAN 25 MG TAB PO STA (20:24)
[2024-03-07] MEDS: DIVALPROEX 250 MG TABLET.DR PO SCH (20:24)
[2024-03-08 08:40] VITALS: RESP 17
[2024-03-08] MEDS: LOSARTAN 50 MG TAB PO SCH (12:08)
[2024-03-08 12:19] VITALS: BP 176/85; PULSE 86; TEMP 98.2
--- NOTE | 2024-03-08 12:57 | P.PN ---
Subjective Progress Note Date: 03/08/24 I am following up with the patient and he is accompanied with his . The stated that her and her daughter are leaning towards placing the patient in foster care. Objective - Vital Signs Vital signs: Vital Signs Temp 98.2 F 03/08/24 12:17 Pulse 86 03/08/24 12:17 Resp 17 03/08/24 12:17 BP 176/85 03/08/24 12:17 Pulse Ox 95 03/08/24 12:17 FiO2 Intake & Output 03/07/24 03/08/24 03/08/24 18:59 06:59 18:59 Intake Total 700 780 240 Balance 700 780 240 Weight 66 kg 56 kg Intake: Oral 700 780 240 Other: Voiding Method External Catheter Diaper # Voids 2 - Exam General: Lying in bed and does not appear in acute distress. Neuro: Patient is awake alert oriented to self and he correctly stated that he is in the hospital. He is able to identify some objects correctly such as pen but sometimes he needed some cueing. He says he still appears to be confused and at times. Unable to assess visual wilkins or extraocular movement because of his cooperation. No facial weakness. No dysarthria Motor: Strength is unable to assess individual muscle strength but he is able to lift up upper extremity above gravity I do not appreciate any focality in the uppers. In the lowers he is wiggling his toes. Some of the workup during this hospital visit consisted of: TSH is 1.060 Vitamin B12 is 447 Ammonia is less than 9 Serum glucose is 144 on presentation, calcium, magnesium, AST ALT, sodium BUN/creatinine are within normal limits next CT of the head is reported as no acute intracranial process. Atrophy with chronic appearing periventricular white matter ischemic type changes. Personally reviewed the CT and I agree there is no acute or subacute ischemia. I feel the patient's ventricles the lateral ventricle third and fourth ventricle appears slightly more dilated than the patient generalized atrophy concerning for normal pressure hydrocephalus Routine EEG is abnormal. The background slowing is suggestive of mild enceph alopathy. There is no focal slowing, Opti[employer] discharge or seizure on the EEG 2D echo is reported as normal left ventricular function. - Labs CBC & Chem 7: 03/07/24 08:01 03/07/24 08:01 Assessment and Plan Assessment: This is a 78-year-old gentleman who presented emergency department because of episode of unresponsiveness. notified the ED physician that he had episode of unresponsiveness with little bit of shaken and he has been some come somewhat confused since then. The episode of unresponsive was 2 minutes. stated that they are in the process of starting hospice. Episode of unresponsiveness with shaking and and was confused afterwards seems suspicious of possible seizure. CT of the head is negative for any acute or subacute process there is a concern for normal pressure hydrocephalus. Underlying history of memory impairment. Feel the patient likely has underlying at least moderate dementia. Plan: Routine EEG was negative for any seizure or discharges. Because of my concern for seizure I started the patient on Depakote 250 mg twice daily. I will avoid Keppra since it can cause behavioral/mood issues. I feel there is a suspicion for normal pressure hydrocephalus on CT but if the is can a pursue hospice there is no further intervention needed unless the wants to have the patient evaluated by neurosurgeon neurologist as an outpatient for further evaluation. I will Hold off on the MRI of the brain until the family decides. As well as unlikely the patient will cooperate for an MRI at this time. On seizure precautions seizure pads Cardiology is on board. The patient's and daughter are going to place the patient in foster care and per the nurse he is going in hospice in foster care. Will defer the rest of the medical management to primary and other specialist next The plan is discussed with patient's in person and his nurse. Time with Patient: Less than 30
== END 2024-03-08 12:43 | disposition home or self-care (01) ==
LOC: EC 18:02 → 3SCARD 19:29
PROVIDERS: ADMIT Hospitalist; ATTEND Hospitalist
DX: R40.4 Transient alteration of awareness (principal); R56.9 Unspecified convulsions; G92.8 Other toxic encephalopathy; D72.829 Elevated white blood cell count, unspecified; F32.A Depression, unspecified; E78.5 Hyperlipidemia, unspecified; F03.90 Unspecified dementia, unspecified severity, without behavioral disturbance, psychotic disturbance, mood disturbance, and anxiety; I16.0 Hypertensive urgency; I10 Essential (primary) hypertension; Z91.81 History of falling; Z79.899 Other long term (current) drug therapy
CPT/HCPCS: 36415; 51798; 70450; 71046; 80048; 80053; 81003; 82140; 82607; 83735; 84443; 84484; 85025; 93005; 93306; 95816; 99285